=== PATIENT | female | born 1995 | race Caucasian/White ===

== ENCOUNTER 2020-10-13 23:44 | Emergency (ER) | payer MEDICAID, SELFPAY ==
[2020-10-13 23:58] VITALS: BP 120/77; PULSE 92; RESP 18; TEMP 36.8; O2SAT 97; BMI 26.6
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
[2020-10-14 01:07] VITALS: BP 126/82; PULSE 84; RESP 18; O2SAT 96
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
[2020-10-14 01:23] LABS: Basophils % 0.3 %; Eosinophils % 0.2 %; Hematocrit 41.6 % (37.0-47.0); Hemoglobin 14.1 g/dL (11.5-15.3); Lymphocytes % 7.6 %; Mean Corpuscular HGB Conc 33.9 g/dL (30.0-36.0); Mean Corpuscular Hemoglobin 29.7 pg (28.0-34.0); Mean Corpuscular Volume 87.8 fL (81-99); Monocytes # 0.7 10^3/uL (0.2-0.9); Monocytes % 5.5 %; Neutrophils # 11.37 10^3/uL (1.8-7.7); Nucleated Red Blood Cells % 0 %; Platelet Count 373 10^3/cmm (130-400); Red Blood Count 4.74 10^6/uL (4.1-5.3); Red Cell Distribution Width 13.4 % (12.1-15.1); White Blood Count 13.2 10^3/uL (4.0-10.0)
[2020-10-14 01:30] VITALS: RESP 18; O2SAT 98
[2020-10-14] MEDS: morphine 4 mg/mL SDV 1 mL IVP ×2 (01:30→03:00)
[2020-10-14 01:32] LABS: HCG, Serum Qual Negative (Negative)
[2020-10-14 01:41] LABS: Alanine Aminotransferase 204 U/L (0-33); Albumin Level 4.2 g/dL (3.5-5.2); Alkaline Phosphatase 56 IU/L (35-105); Aspartate Amino Transferase 157 U/L (0-32); Blood Urea Nitrogen 7 mg/dL (6-20); Calcium 8.6 mg/dL (8.5-10.5); Carbon Dioxide 23 mmol/L (22-29); Chloride 103 mmol/L (98-107); Globulin 3.7 g/dL (1.3-4.6); Glomerular Filtration Rate 149.1 mL/min (90-130); Glucose 143 mg/dL (65-115); Osmolality Calculated 284 mOsm/kg (285-295); Sodium 137 mmol/L (136-145); Total Bilirubin 0.9 mg/dL (0.15-1.2); Total Protein 7.9 g/dL (6.6-8.7)
[2020-10-14] MEDS: iohexol 300 mg/mL 100 mL Btl IV (01:44)
[2020-10-14 03:00] VITALS: RESP 20; O2SAT 98
[2020-10-14 03:30] VITALS: BP 149/96; PULSE 88; RESP 16; O2SAT 98
[2020-10-14 04:00] VITALS: BP 149/96; PULSE 88; RESP 18; O2SAT 98
== END 2020-10-14 03:55 ==
PROVIDERS: Emergency Provider Student in an Organized Health Care Education/Training Program
DX: S36.113A Laceration of liver, unspecified degree, initial encounter (principal); V89.2XXA Person injured in unspecified motor-vehicle accident, traffic, initial encounter; W22.11XA Striking against or struck by driver side automobile airbag, initial encounter
CPT/HCPCS: 71260; 74177; 80053; 84703; 85025; 96374; 96376; 99285; J2270; Q9967

== ENCOUNTER → 2022-09-15 09:37 | Outpatient (BNVA) | payer MEDICAID, SELFPAY | PROVIDERS: Visit Provider Obstetrics & Gynecology | DX: Z34.90 Encounter for supervision of normal pregnancy, unspecified, unspecified trimester (principal) | CPT/HCPCS: 80307; 81025; 85027; 86592; 86762; 86803; 86850; 86900; 87086; 87340; 87522; 87806 ==

== ENCOUNTER → 2022-09-22 13:08 | Outpatient (BNVA) | payer MEDICAID, SELFPAY | PROVIDERS: Visit Provider Obstetrics & Gynecology | DX: Z34.92 Encounter for supervision of normal pregnancy, unspecified, second trimester (principal); Z3A.15 15 weeks gestation of pregnancy | CPT/HCPCS: 76801; 76815 ==

== ENCOUNTER → 2022-12-12 14:32 | Outpatient (BNVA) | payer MEDICAID, SELFPAY | PROVIDERS: Visit Provider Obstetrics & Gynecology | DX: Z34.93 Encounter for supervision of normal pregnancy, unspecified, third trimester (principal); Z3A.28 28 weeks gestation of pregnancy | CPT/HCPCS: 76805 ==

== ENCOUNTER → 2022-12-19 13:40 | Outpatient (BNVA) | payer MEDICAID, SELFPAY | PROVIDERS: Visit Provider Obstetrics & Gynecology | DX: Z34.80 Encounter for supervision of other normal pregnancy, unspecified trimester (principal) | CPT/HCPCS: 82950; 84315; 85025 ==

== ENCOUNTER → 2023-01-20 10:20 | Outpatient (BNVA) | payer MEDICAID, SELFPAY | PROVIDERS: Visit Provider Obstetrics & Gynecology | DX: Z34.80 Encounter for supervision of other normal pregnancy, unspecified trimester (principal) | CPT/HCPCS: 82951; 82952 ==

== ENCOUNTER → 2023-02-13 15:21 | Outpatient (BNVA) | payer MEDICAID, SELFPAY | PROVIDERS: Visit Provider Obstetrics & Gynecology | DX: Z34.80 Encounter for supervision of other normal pregnancy, unspecified trimester | CPT/HCPCS: 84315; 87081 ==

== ENCOUNTER 2023-03-03 10:58 | Inpatient (IN) | payer MEDICAID, SELFPAY ==
--- NOTE | 2023-02-27 16:12 | ANES.PREANE2 ---
Pre-Anesthetic Assessment Height/Weight: Height 1.7 m Operation Date: 03/03/23 12:20 Proposed Procedures p Repeat section 62538,O34.219(Not Applicable) - Sanchez Jones MD Familial anesthetic complications: none Social Tobacco and No alcohol Exam alert, oriented x 3 and regular rate & rhythm Airway Submandibular: within normal limits Cervical ROM: within normal limits Mallampati: Class II Dentition: chipped Hepatic Hepatitis (C) Anesthetic Plan ASA status: 2 Anesthesia: Regional (specify below) (SAB) Medications/Allergies Home Medications Medication Instructions Recorded Confirmed Last Taken Type omeprazole 20 mg capsule,delayed 20 mg PO DAILY 8 weeks #60 caps 02/23/22 02/27/23 Unknown Rx release ondansetron HCl 4 mg tablet 4 mg PO Q8H PRN nausea and 12/19/22 02/27/23 Unknown Rx vomiting #30 tabs Allergies Allergy/AdvReac Type Severity Reaction Status Date / Time No Known Allergies Allergy Verified 02/27/23 11:44 PFSH Anesthesia Medical History Bradycardia Family history of coronary artery disease Smoker Surgical History S/P section Family History Grandmother CHF (congestive heart failure) Stroke Myocardial infarction Hypertension CAD (coronary artery disease) Grandfather CHF (congestive heart failure) Hypertension Mother CHF (congestive heart failure) Hypertension Father CHF (congestive heart failure) Myocardial infarction Hypertension Diabetes CAD (coronary artery disease) Data Anesthesia Cardiac Studies: No Data to Display
[2023-03-03] VITALS (21 sets, daily range): BP systolic 96–121; BP diastolic 53–81; PULSE 48–106; RESP 18; TEMP 35.3–36.6; BMI 29.2
[2023-03-03] MEDS: lactated ringers 1,000 ML 999 ML IV ×2 (11:28→12:01)
[2023-03-03 11:47] LABS: Basophils % 0.4 %; Eosinophils % 0.2 %; Lymphocytes # 2.2 10^3/uL (0.8-4.8); Lymphocytes % 19.8 %; Mean Corpuscular HGB Conc 34.6 g/dL (30-55); Mean Corpuscular Volume 86.6 fl (85-98); Mean Platelet Volume 10.4 fL (7.4-10.4); Monocytes # 0.7 10^3/uL (0.2-0.9); Monocytes % 6.2 %; Nucleated Red Blood Cells % 0 %; Platelet Count 535 10^3/cmm (157-399); Red Blood Count 4.04 10^6/uL (3.85-5.65); Red Cell Distribution Width 12.9 % (12.1-15.1); White Blood Count 11.09 10^3/uL (3.29-11.43)
[2023-03-03] MEDS: famotidine 20 mg/2 mL INJ IVP (11:48)
[2023-03-03] MEDS: metoclopramide 5 mg/mL SDV 2 mL 10 MG IVP (11:48)
[2023-03-03] MEDS: citric acid-sodium citrate 30 mL UDC PO (11:48)
--- NOTE | 2023-03-03 11:55 | P.ANESUD_ITS ---
Pre-Anesthetic Update Pre-Anesthetic Assessment: Date of Surgery/Procedure: 03/03/23 Preop Jaquelin gnosis: previous c section Proposed Procedure: Operation Date: 03/03/23 12:20 Proposed Procedures p Repeat section 67367,O34.219(Not Applicable) - Sanchez Jones MD Any changes to Pre-Anesthetic Assessment?: No Last Intake: 23:00 Labs Last 48hrs: Short CBC 03/03/23 Range/Units 11:25 WBC 11.09 (3.29-11.43) 10^ 3/uL Hgb 12.10 (11.27-16.99) g/ dL Hct 35.0 L (36-47) % MCV 86.6 (85-98) fl Plt Count 535 H (157-399) 10^3/c mm Neut % (Auto) 73.0 % Neut # (Auto) 8.10 H (1.8-7.7) 10^3/u L Vitals: Temperature 96.8 F L 03/03/23 11:09 Pulse Rate 106 H 03/03/23 11:09 Blood Pressure 121/81 03/03/23 11:09 Exam: Pre-Anes Outpt Exam: alert, oriented x 3, clear to auscultation bilaterally and regular rate & rhythm Cardiac Studies: No Data to Display
[2023-03-03 11:58] LABS: Amphetamines Screen Urine Negative (Negative); Barbiturates Screen Urine Negative (Negative); Benzodiazepines Screen Urine Negative (Negative); Cocaine Screen Urine Negative (Negative); Opiate Screen Urine Negative (Negative); PCP Screen Urine Negative (Negative); THC Screen Urine Positive (Negative)
--- NOTE | 2023-03-03 12:15 | PM.OBGYHP ---
Providers/Chief Complaint Admitting Physician: Sanchez Jones MD Primary DOCUMENT REVIEWER: Sanchez Jones MD Chief Complaint: repeat HPI DOCUMENT REVIEWER History of Present Illness 27 y.o. A1 EDC March 10, 2023 by 16 week sono At 39 w 0 d No complications No c/o + active movements h/o c-sections x two admitted for repeat POBHx: 1. Male, 7 lbs 2 oz, , Tarah Meeks 2. SAB at 11 weeks 3. RCS, 8 lbs 10 oz, male, February 2017 PMHx: hepatitis C PSHx: c-sections x two Meds: vitamins SHx: + marijuana Present Details : 3 Para: 2 Labs Rubella: Immune RPR: Negative GBS: Negative Medications/Allergies Home Medications Medication Instructions Recorded Confirmed Last Taken Type omeprazole 20 mg capsule,delayed 20 mg PO DAILY 8 weeks #60 caps 02/23/22 02/27/23 Unknown Rx release ondansetron HCl 4 mg tablet 4 mg PO Q8H PRN nausea and 12/19/22 02/27/23 Unknown Rx vomiting #30 tabs Allergies Allergy/AdvReac Type Severity Reaction Status Date / Time No Known Allergies Allergy Verified 02/27/23 11:44 PFSH DOCUMENT REVIEWER PFSH: Medical History Bradycardia Family history of coronary artery disease Smoker Surgical History S/P section Family History Grandmother CHF (congestive heart failure) Stroke Myocardial infarction Hypertension CAD (coronary artery disease) Grandfather CHF (congestive heart failure) Hypertension Mother CHF (congestive heart failure) Hypertension Father CHF (congestive heart failure) Myocardial infarction Hypertension Diabetes CAD (coronary artery disease) Personal Safety: Do you feel safe at home: Yes Victim of physical abuse: No Victim of emotional abuse: No Victim of sexual abuse: No Would you like help information on resources?: No History History History 4 Term 2 0 Miscarriages/Ectopic 1 Living Children 2 Care BERENICE Calculator Estimated Delivery Date Method Current WG Current Estimate 03/10/23 Ultrasound #1 39w 0d Other Estimates 03/12/23 LMP (Uncertain) 38w 5d Vitals/I&O/Wt Last Vital Signs Temp 95.5 F L 03/03/23 15:43 Pulse 56 L 03/03/23 22:15 Resp 18 03/03/23 14:31 BP 102/55 03/03/23 22:15 O2 Del Method Room Air 03/03/23 11:08 03/03/23 03/03/23 03/04/23 14:59 22:59 06:59 Intake Total 2899.45 / 2899.45 931.25 / 3830.70 Output Total 600 / 600 200 / 800 Balance 2299.45 / 2299.45 731.25 / 3030.70 Weight last 48 hrs Weight 187 lb Physical Exam Narrative: weight 187 lbs; 5?7? VS normal Comfortable, awake, alert Lungs: clear Cor: RRR Abd: soft, nontender FH 37 cm FHTs normal External monitor: heart tracing good variability, + accelerations Urinary Catheter Management: Rashid: Cath Placed During This Visit: yes Reason for Continuing Indwelling Catheter: Perioperative Use in Selected Surgeries Urinary Catheter Date of Insertion: 03/03/23 Urinary Catheter Time of Insertion: 13:00 Data 03/03/23 11:25 Results Labs OB ([facility]): Obstetrics US 09/22/22 Blood Type A Positive 03/03/23 Antibody Screen Negative 03/03/23 Hct 35.0 % (36-47) L 03/03/23 Hgb 12.10 g/dL (11.27-16.99) 03/03/23 Rho(D) Type Positive 03/03/23 Plt Count 535 10^3/cmm (157-399) H 03/03/23 Hep Bs Antigen Non-reactive (Nonreactive) 09/15/22 Hepatitis C Antibody Reactive (Nonreactive) H 09/15/22 Rubella IgG Antibody 456.3 IU/mL (0.0-10.0) H 09/15/22 RPR Nonreactive (Nonreactive) 09/15/22 Urine Protein 1+ (Negative) H 02/27/23 Urine Glucose (UA) Norm (Normal) 02/27/23 Gest Glucose Tolerance mg/dL 01/20/23 OB Ultrasound OB sono 09-22-22 15 w 6 d; EDC 03-10-23 12-12-22 28 w 2 d; WNL A&P Assessment and plan (1) Supervision of other normal : 39 w 0 d (2) H/O: section: h/o c-sections x two admitted for repeat procedure and risks explained to patient, including but not limited to, infection, bleeding, injury to internal organs, anesthesia, blood transfusions patient understands and wants to proceed Attestations Medical Necessity Statement*: patient at 39 weeks, admitted for repeat Coding Level of Care Code Acute Code for Chg Fwd Diagnoses Supervision of other normal Z34.80 H/O: section Z98.891 Time Spent (min) 20
[2023-03-03] MEDS: ceFAZolin 2,000 MG in sodium chloride 0.9% (plus) 50 ML 100 MG IV (13:00)
--- NOTE | 2023-03-03 14:05 | PM.OP ---
Operative Report Date of procedure: March 03, 2023 Pre-op diagnosis: 39 weeks gestation Previous x two For repeat Post-op diagnosis: same Post-op findings: Vigorous male infant Normal placenta and cord Normal uterus, tubes, and ovaries Procedure done: Repeat low-transverse Implants: none Specimens removed/disposition: placenta, discarded Surgeon: Sanchez Jones MD Anesthesia: Spinal Estimated blood loss (mL): 500 Complications: none Condition: stable Disposition: floor Brief History: 27 y.o. A1 EDC March 10, 2023 by 16 week sono At 39 w 0 d No complications h/o c-sections x two admitted for repeat Procedure: Informed consent signed. Patient was taken to the operating room, placed supine in the left lateral tilt position. Spinal anesthesia and a Rashid catheter were already placed. The abdomen was prepped and draped in the usual sterile fashion. A Pfannenstiel incision was made over an old scar and carried down through skin and subcutaneous tissue and fascia. The fascial incision was extended laterally with Michele scissors. The fascia was from the underlying rectus muscles. The rectus muscles were split in the midline. The peritoneum was entered bluntly avoiding underlying organs. A bladder flap was created. A low transverse uterine incision was made and extended laterally bluntly avoiding the uterine vessels. Clear amniotic fluid was seen. The baby was delivered in cephalic presentation atraumatically. The baby was suctioned. The cord was clamped and cut and the baby was handed to an awaiting residential remodeling subcontractor. Cord blood was obtained. The placenta was manually removed intact. The uterus was not exteriorized. The uterine cavity was bluntly curetted with wet laps. The uterine incision was then closed with a continuous interlocking stitch of O chromic. Adequate hemostasis was seen. No bleeding was seen. The uterine incision was again inspected and found to have good hemostasis. The fascia was then closed with a continuous stitch of O-Vicryl. Additional interrupted stitches of O-Vicryl were used for fascial closure. The subcutaneous tissue was irrigated and inspected for hemostasis. The skin was then reapproximated using Insorb maria luisa. Postoperative condition stable Disposition to recovery room Estimated blood loss 500 cc, no replacement Sponge, needle, and instrument counts were correct x two There were no complications
[2023-03-03] MEDS: dextrose 5%-lactated ringers 1,000 ML 125 ML IV ×2 (15:02→22:29)
--- NOTE | 2023-03-03 15:15 | ANE.PACU2 ---
Inpatient post-anesthesia follow up: Airway intact: Yes Vital signs: Temperature 96.8 F Pulse Rate 80 Respiratory Rate Blood Pressure 117/68 Pulse Oximetry Oxygen Delivery Me thod Oxygen Flow Rate Fraction of Inspir ed Oxygen Hydration adequate: Yes Nausea and vomiting: No Pain level: 2 Mental status: Baseline
[2023-03-03] MEDS: ondansetron 2 mg/ML SDV 2 mL 4 MG IVP (18:19)
[2023-03-03] MEDS: docusate sodium 100 mg Capsule PO (19:42)
[2023-03-03] MEDS: ketorolac 30 mg/mL INJ IVP (19:42)
--- NOTE | 2023-03-03 23:23 | PC.NURSE ---
This freelance writer was standby assistance as pt ambulated around the OB unit once at approximately 2200. Pt stated she was in no pain and was comfortable to ambulate on her own.
[2023-03-04 01:31] LABS: Hematocrit 29.7 % (36-47); Mean Corpuscular Hemoglobin 30.1 pg (27-33); Mean Corpuscular Volume 88.7 fl (85-98); Mean Platelet Volume 10.1 fL (7.4-10.4); Platelet Count 449 10^3/cmm (157-399); Red Blood Count 3.35 10^6/uL (3.85-5.65); Red Cell Distribution Width 12.8 % (12.1-15.1); White Blood Count 12.05 10^3/uL (3.29-11.43)
[2023-03-04 01:38] VITALS: BP 122/66; PULSE 76
[2023-03-04 02:38] VITALS: BP 111/56; PULSE 71
[2023-03-04] MEDS: docusate sodium 100 mg Capsule PO ×2 (09:27→21:52)
[2023-03-04] MEDS: prenatal vitamin Capsule 1 CAP PO (09:27)
[2023-03-04] MEDS: ibuprofen 800 mg tablet PO ×3 (09:28→21:52)
[2023-03-04 10:00] VITALS: BP 100/64; PULSE 64; RESP 16; TEMP 36.9; O2SAT 97
--- NOTE | 2023-03-04 11:27 | PM.PN ---
Subjective Subjective: Postop day #1 s/p repeat low transverse section on 03/03/2023. Patient is ambulating, tolerating regular diet and voiding. She denies headaches, blurred vision, chest pain or shortness of breath. VSS, afebrile Vitals/I&O/Wt Last Vital Signs Temp 95.5 F L 03/03/23 15:43 Pulse 71 03/04/23 02:38 Resp 18 03/03/23 14:31 BP 111/56 03/04/23 02:38 O2 Del Method Room Air 03/03/23 11:08 03/03/23 03/04/23 03/04/23 22:59 06:59 14:59 Intake Total 931.25 / 3830.70 Output Total 200 / 800 1100 / 1900 Balance 731.25 / 3030.70 -1100 / 1930.70 Weight last 48 hrs Weight 84.822 kg Physical Exam Back/Pelvis: OTHER: Abdomen?soft, fundus firm. bandage removed-incision clean dry and intact. Lochia?light. Extremity: NARRATIVE EXTREMITY EXAM: Negative edema, negative Homans' sign. Urinary Catheter Management: Rashid: Cath Placed During This Visit: yes, but has since been removed by the nurse Reason for Continuing Indwelling Catheter: Decision to DC Catheter Urinary Catheter Date of Insertion: 03/03/23 Urinary Catheter Time of Insertion: 13:00 Date Urinary Catheter Removed: 03/04/23 Time Urinary Catheter Discontinued: 01:35 Data 03/04/23 01:25 A&P Assessment and plan (1) Supervision of other normal : (2) H/O: section: (3) Hepatitis C antibody positive in blood: (4) Bradycardia: (5) Smoker: Plan Continue present care probable discharge 03/05/2023. Attestations Medical Necessity Statement*: Repeat section delivery and postoperative care. Coding Level of Care Code Acute Code for Chg Fwd Diagnoses Supervision of other normal Z34.80 H/O: section Z98.891 Hepatitis C antibody positive in blood R76.8 Bradycardia R00.1 Smoker F17.200
[2023-03-04 15:08] VITALS: BP 98/56; PULSE 78; RESP 16; TEMP 36.9; O2SAT 97
[2023-03-04] MEDS: acetaminophen 325 mg Tablet 650 MG PO (21:52)
[2023-03-04 22:00] VITALS: BP 113/72; PULSE 78; RESP 15; TEMP 37.1; O2SAT 98
[2023-03-05 04:26] VITALS: BP 115/75; PULSE 82; RESP 16; TEMP 37.1; O2SAT 97
--- NOTE | 2023-03-05 06:31 | PM.OBGYDC ---
Discharge Providers PORCELAIN SLUSHER Date of Admission: 03/03/23 10:58 Date of Discharge: 03/05/23 Attending Provider at Admission: Sanchez Jones MD Attending Provider at Discharge: Sanchez Jones MD Diagnoses at Discharge Discharge Diagnosis (1) Supervision of other normal : Status: Acute (2) H/O: section: Status: Acute (3) Hepatitis C antibody positive in blood: Status: Acute (4) Bradycardia: Status: Acute (5) Smoker: Status: Acute Reason for Visit Reason for Visit: repeat Hospital Course Hospital Course 27-year-old female G4, P3 delivered via repeat low-transverse section by Dr. Hayley Jones on 03/03/2023. Patient is ambulating, tolerating regular diet and voiding, she is passing flatus and has had a stool. Patient denies headaches, blurred vision, dizziness, shortness of breath or chest pain. Patient is requesting discharge to home discharge expectations and orders have been reviewed and patient verbalizes understanding. Patient is breast-feeding and bottlefeeding, I encouraged her to continue her vitamins with high-fiber diet with fruits and vegetables and increase fluids. She is to shower daily keeping her incision clean and dry. Pain medicine has been reviewed she may take ibuprofen and rotate with Tylenol as needed. She is required very little pain medication over the last 24 hours. VSS, afebrile Abdomen?soft, fundus firm, incision clean dry intact Lochia light Extremities?no edema negative Homans' sign Information Peripartum Data: Infant Delivery Method: Physical Exam Urinary Catheter Management: Rashid: Cath Placed During This Visit: yes, but has since been removed by the nurse Reason for Continuing Indwelling Catheter: Decision to DC Catheter Urinary Catheter Date of Insertion: 03/03/23 Urinary Catheter Time of Insertion: 13:00 Date Urinary Catheter Removed: 03/04/23 Time Urinary Catheter Discontinued: 01:35 History History History 4 Term 2 0 Miscarriages/Ectopic 1 Living Children 2 Discharge Data Studies Completed and Pending Laboratory Results WBC 12.05 10^3/uL (3.29-11.43) H 03/04/23 01:25 RBC 3.35 10^6/uL (3.85-5.65) L 03/04/23 01:25 Hgb 10.10 g/dL (11.27-16.99) L 03/04/23 01:25 Hct 29.7 % (36-47) L 03/04/23 01:25 MCV 88.7 fl (85-98) 03/04/23 01:25 MCH 30.1 pg (27-33) 03/04/23 01:25 MCHC 34.0 g/dL (30-55) 03/04/23 01:25 RDW 12.8 % (12.1-15.1) 03/04/23 01:25 Plt Count 449 10^3/cmm (157-399) H 03/04/23 01:25 MPV 10.1 fL (7.4-10.4) 03/04/23 01:25 Neut % (Auto) 73.0 % 03/03/23 11:25 Lymph % (Auto) 19.8 % 03/03/23 11:25 [place] % (Auto) 6.2 % 03/03/23 11:25 Eos % (Auto) 0.2 % 03/03/23 11:25 Baso % (Auto) 0.4 % 03/03/23 11:25 Neut # (Auto) 8.10 10^3/uL (1.8-7.7) H 03/03/23 11:25 Lymph # (Auto) 2.2 10^3/uL (0.8-4.8) 03/03/23 11:25 [place] # (Auto) 0.7 10^3/uL (0.2-0.9) 03/03/23 11:25 Eos # (Auto) 0.0 10^3/uL (0.0-0.8) 03/03/23 11:25 Baso # (Auto) 0.0 10^3/uL (0.0-0.1) 03/03/23 11:25 Nucleated RBC % (auto) 0 % 03/03/23 11:25 Nucleated RBCs # 0.0 /100WBC 03/03/23 11:25 Urine Opiates Screen Negative ng/mL (Negative) 03/03/23 11:25 Ur Barbiturates Screen Negative ng/mL (Negative) 03/03/23 11:25 Ur Phencyclidine Scrn Negative ng/mL (Negative) 03/03/23 11:25 Ur Amphetamines Screen Negative ng/mL (Negative) 03/03/23 11:25 U Benzodiazepines Scrn Negative ng/mL (Negative) 03/03/23 11:25 Urine Cocaine Screen Negative ng/mL (Negative) 03/03/23 11:25 U Marijuana (THC) Screen Positive ng/mL (Negative) H 03/03/23 11:25 Blood Type A Positive 03/03/23 11:15 Rho(D) Type Positive 03/03/23 11:15 Antibody Screen Negative 03/03/23 11:15 Vitals Last Vital Signs Temp 98.8 F 03/05/23 04:26 Pulse 82 03/05/23 04:26 Resp 16 03/05/23 04:26 BP 115/75 03/05/23 04:26 Pulse Ox 97 03/05/23 04:26 O2 Del Method Room Air 03/05/23 04:26 Results Labs OB ([facility]): Obstetrics 09/22/22 Blood Type A Positive 03/03/23 Antibody Screen Negative 03/03/23 Hct 29.7 % (36-47) L 03/04/23 Hgb 10.10 g/dL (11.27-16.99) L 03/04/23 Rho(D) Type Positive 03/03/23 Plt Count 449 10^3/cmm (157-399) H 03/04/23 Hep Bs Antigen Non-reactive (Nonreactive) 09/15/22 Hepatitis C Antibody Reactive (Nonreactive) H 09/15/22 Rubella IgG Antibody 456.3 IU/mL (0.0-10.0) H 09/15/22 RPR Nonreactive (Nonreactive) 09/15/22 Urine Protein 1+ (Negative) H 02/27/23 Urine Glucose (UA) Norm (Normal) 02/27/23 Gest Glucose Tolerance mg/dL 01/20/23 Discharge Plan Discharge Patient Disposition: Home Condition: Stable Prescriptions: Discontinued omeprazole 20 mg capsule,delayed release(DR/EC) 20 mg PO DAILY 56 Days Qty: 60 0RF ondansetron HCl 4 mg tablet 4 mg PO Q8H PRN (Reason: nausea and vomiting) Qty: 30 1RF Discharge Orders: Discharge Order (Routine); Ordered 03/05/23 Ordered By: Jenny Zheng Discharge Diet: Regular Discharge Activity: Increase activity as tolerated Patient Instructions: Depression (DC), Preeclampsia During (GEN), Hemorrhage (DC), OB Discharge Report, OB Food/Drug Interaction Guide, Opioid Safety, OB Home Care, Abnormal Bleeding Activity Restrictions/Additional Instructions: No strenuous activity no sexual intercourse x6 weeks. Assessment: S/p repeat low-transverse section Plan of Treatment: Discharge to home Follow-up in [address] Jones Discharge Attestations PORCELAIN SLUSHER Time Spent in Discharge Care*: less than 30 min Coding Level of Care Code Acute Code for Chg Fwd Diagnoses Supervision of other normal Z34.80 H/O: section Z98.891 Hepatitis C antibody positive in blood R76.8 Bradycardia R00.1 Smoker F17.200
[2023-03-05 07:30] VITALS: BP 123/79; PULSE 70; RESP 16; TEMP 37.1
[2023-03-05] MEDS: prenatal vitamin Capsule 1 CAP PO (09:08)
[2023-03-05] MEDS: docusate sodium 100 mg Capsule PO (09:08)
[2023-03-05] MEDS: ibuprofen 800 mg tablet PO (09:09)
[2023-03-05 12:56] VITALS: BP 128/85; PULSE 81; RESP 16; TEMP 36.9; O2SAT 96
[2023-03-05 13:05] VITALS: BP 128/85; PULSE 81; RESP 16; TEMP 36.9; O2SAT 96
== END 2023-03-05 13:05 | disposition home or self-care (01) | DRG 787 ==
PROVIDERS: Admitting Provider Obstetrics & Gynecology; Visit Provider Obstetrics & Gynecology
PROC: 10D00Z1 Extraction of Products of Conception, Low, Open Approach (ICD-10-PCS; CPT 59514; principal; 2023-03-03 12:00)
DX: O34.211 Maternal care for low transverse scar from previous cesarean delivery (principal); O98.42 Viral hepatitis complicating childbirth; O99.324 Drug use complicating childbirth; Z3A.39 39 weeks gestation of pregnancy; Z37.0 Single live birth; O99.334 Smoking (tobacco) complicating childbirth; F17.200 Nicotine dependence, unspecified, uncomplicated; B19.20 Unspecified viral hepatitis C without hepatic coma; F12.90 Cannabis use, unspecified, uncomplicated
CPT/HCPCS: 36415; 51702; 59025; 59409; 80306; 85025; 85027; 86850; 86900; 96374; 96376; J0690; J1885; J2274; J2405; J2765; J3490; J7120; J7121